=== PATIENT | male | born 1970 | race Caucasian/White ===

== ENCOUNTER 2018-05-13 16:03 | Emergency (ER) | payer OTHER ==
[~2018-05-13] VITALS: Ht 170.2 cm; Wt 104.3 kg
--- NOTE | 2018-05-13 16:03 | NUR ---
BROUGHT IN BY [facility], PLACED IN BED #3 AND TRIAGED. REPORT GIVEN TO SHARDA
[2018-05-13 16:05] VITALS: BP_SYST 186
--- NOTE | 2018-05-13 16:10 | NUR ---
Pt c/o 09/09 pain in back, states his chest pain is from being nauseated and "dry heaving." No other complaints or injuries per pt or noted.
[2018-05-13] MEDS ORDERED: LEVOFLOXACIN 500 MG/D5W 100 ML IV ONE (16:15)
[2018-05-13] MEDS ORDERED: ALBUTEROL SULFATE 0.083% 2.5 MG/3 ML VIAL.NEB INH ONE (16:15)
--- NOTE | 2018-05-13 16:15 | NUR ---
ER Dr. Lopez at bedside examining patient.
[2018-05-13 16:54] LABS: CALCIUM 8.9 mg/dL (8.4-11.0); CREATININE 6.54 mg/dL (0.55-1.30); INR 1.1 (0.80-1.20); POTASSIUM 4.3 mmol/L (3.5-5.1); PROTHROMBIN TIME 10.8 SECS (9.5-12.5)
[2018-05-13 16:57] LABS: WHITE BLOOD COUNT (AUTO) 12.3 K/uL (4.8-10.8)
[2018-05-13 16:58] LABS: HEMATOCRIT 30.3 % (36-54); HEMOGLOBIN 9.9 g/dL (14.0-18.0); LYMPHOCYTES % (AUTO) 4.9 % (20.5-51.5); MEAN CORPUSCULAR HEMOGLOBIN 27 pg (27-31); MEAN CORPUSCULAR HGB CONC 33 % (32-36); MEAN CORPUSCULAR VOLUME 82 fL (79.0-98.0); RED CELL DISTRIBUTION WIDTH 15.4 % (9.0-15.0)
[2018-05-13 16:59] LABS: ALBUMIN 4.2 g/dL (3.4-4.8); BASOPHILS % (AUTO) 0.3 % (0.0-2.0); EOSINOPHILS # (AUTO) 0.2 K/uL (0.0-0.4); EOSINOPHILS % (AUTO) 1.3 % (0.0-4.0); LYMPHOCYTES # (AUTO) 0.6 K/uL (1.0-5.5); MONOCYTES # (AUTO) 0.9 K/uL (0.0-1.0); MONOCYTES % (AUTO) 7.5 % (1.7-9.3); NEUTROPHILS # (AUTO) 10.6 K/uL (1.8-7.7); TOTAL BILIRUBIN 0.7 mg/dL (0.0-1.0)
--- NOTE | 2018-05-13 17:00 | NUR ---
Pt states he is unable to provide urine sample at this time
[2018-05-13 17:05] LABS: PLATELET COUNT (AUTO) 37 K/uL (130-430)
[2018-05-13] MEDS ORDERED: SSNOVOLOG SUBCUT (17:47)
[2018-05-13] MEDS ORDERED: CARV6.2554 PO (17:47)
[2018-05-13] MEDS ORDERED: HYDR100T25 PO (17:47)
[2018-05-13] MEDS ORDERED: LIP20 PO (17:47)
[2018-05-13] MEDS ORDERED: REGL10 PO (17:47)
[2018-05-13] MEDS ORDERED: HYT1 PO (17:47)
[2018-05-13] MEDS ORDERED: FAMO40TA7 PO (17:47)
[2018-05-13] MEDS ORDERED: CALC0.258 PO (17:47)
[2018-05-13] MEDS ORDERED: INSU100V9 SQ (17:47)
[2018-05-13] MEDS ORDERED: VIT1TABL82 PO (17:47)
[2018-05-13] MEDS ORDERED: IRON1CAP17 PO (17:47)
--- NOTE | 2018-05-13 17:48 | NUR ---
Medication reconciliation completed with information provided by patient. Any prior medication reconciliation on file was reviewed and corrected.
[2018-05-13] MEDS ORDERED: KETOROLAC TROMETHAMINE 30 MG VIAL IVP ONE (18:00)
[2018-05-13] MEDS ORDERED: MORPHINE 4 MG/ML INJ. SYRINGE IVP ONE (18:00)
[2018-05-13] MEDS ORDERED: ONDANSETRON HCL 4 MG/2 ML VIAL IVP ONE (18:00)
[2018-05-13] MEDS ORDERED: DIPHENHYDRAMINE INJ 50 MG/ML VIAL IVP ONE (18:00)
--- NOTE | 2018-05-13 19:00 | NUR ---
Endorsed plan of care to Ismael GIFFORD.
[2018-05-13 19:37] VITALS: BP_SYST 145
--- NOTE | 2018-05-13 19:37 | NUR ---
Patient given written and verbal discharge instructions and verbalizes understanding. ER MD discussed with patient the results and treatment provided. Patient in stable condition. ID arm band removed. IV catheter removed intact and dressing applied, no active bleeding. Rx of Albuterol and [place] given. Patient educated on pain management and to follow up with PMD. Pain Scale 0. Opportunity for questions provided and answered. Medication side effect fact sheet provided.
== END 2018-05-13 19:37 | disposition home or self-care (01) ==
LOC: SED 16:03
DX: N19 Unspecified kidney failure (principal); E11.9 Type 2 diabetes mellitus without complications; I10 Essential (primary) hypertension; Z79.4 Long term (current) use of insulin; Z79.899 Other long term (current) drug therapy
CPT/HCPCS: 36415; 71045; 80053; 83605; 83880; 84484; 85025; 85610; 87040; 93005; 94664; 96365; 96375; 99284; J1200; J1885; J1956; J2270; J2405; J7613

== ENCOUNTER 2023-02-27 18:28 | Emergency (ER) | payer MEDICARE, OTHER ==
[~2023-02-27] VITALS: Ht 167.6 cm; Wt 79.4 kg
[~2023-02-27 18:28] MED LIST: CALC0.258 PO; CARV6.2554 PO; FAMO40TA7 PO; HYDR100T25 PO; HYT1 PO; INSU100V9 SQ; IRON1CAP17 PO; LIP20 PO; REGL10 PO; SSNOVOLOG SUBCUT; VIT1TABL82 PO
[2023-02-27 18:30] VITALS: BP_SYST 191; PULSE 78; RESP 22; TEMP 98.9; O2SAT 98
[2023-02-27 18:36] VITALS: BP_SYST 156; PULSE 76; RESP 18; O2SAT 98
[2023-02-27 19:30] LABS: BASOPHILS # (AUTO) 0.1 K/uL (0.0-0.2); BASOPHILS % (AUTO) 1.4 % (0.0-2.0); EOSINOPHILS # (AUTO) 1.3 K/uL (0.0-0.4); EOSINOPHILS % (AUTO) 20.2 % (0.0-4.0); HEMATOCRIT 34.2 % (36-54); HEMOGLOBIN 11.7 g/dL (14.0-18.0); LYMPHOCYTES # (AUTO) 0.5 K/uL (1.0-5.5); LYMPHOCYTES % (AUTO) 8.3 % (20.5-51.5); MEAN CORPUSCULAR HEMOGLOBIN 33 pg (27-31); MEAN CORPUSCULAR HGB CONC 34 % (32-36); MEAN CORPUSCULAR VOLUME 96 fL (79.0-98.0); MONOCYTES # (AUTO) 0.5 K/uL (0.0-1.0); MONOCYTES % (AUTO) 8.1 % (1.7-9.3); NEUTROPHILS # (AUTO) 4.1 K/uL (1.8-7.7); PLATELET COUNT (AUTO) 162 K/uL (130-430); RED BLOOD CELL COUNT(AUTO) 3.58 MIL/uL (4.2-6.2); RED CELL DISTRIBUTION WIDTH 15.1 % (9.0-15.0); WHITE BLOOD COUNT (AUTO) 6.6 K/uL (4.8-10.8)
[2023-02-27 19:40] LABS: CALCIUM 8.8 mg/dL (8.4-11.0); POTASSIUM 3.2 mmol/L (3.5-5.1)
[2023-02-27 19:44] LABS: ALBUMIN 3.5 g/dL (3.4-4.8); BILIRUBIN,DIRECT 0.2 mg/dL (0.0-0.3); TOTAL BILIRUBIN 0.7 mg/dL (0.0-1.0); TOTAL PROTEIN, SERUM 7.1 g/dL (6.4-8.3)
[2023-02-27 19:45] LABS: INR 1.2 (0.80-1.20); PROTHROMBIN TIME 11.9 SECS (9.5-12.5)
[2023-02-27] MEDS ORDERED: IBUP-1969 PO (22:06)
[2023-02-27] MEDS ORDERED: TRAM50TA2 PO (22:06)
[2023-02-27] MEDS ORDERED: MORPHINE 4 MG INJ. 4 MG/ML VIAL IM ONE (23:30)
== END 2023-02-27 20:35 | disposition home or self-care (01) ==
LOC: SED 18:28
DX: K40.90 Unilateral inguinal hernia, without obstruction or gangrene, not specified as recurrent (principal); R10.31 Right lower quadrant pain; E11.9 Type 2 diabetes mellitus without complications; I10 Essential (primary) hypertension; Z79.4 Long term (current) use of insulin; Z79.899 Other long term (current) drug therapy
CPT/HCPCS: 99285; 74176; 96374; 80076; 80048; 82150; 83690; 85025; 85610; 85730; 36415; 76376; 83605; J2270